=== PATIENT | male | born 1990 | race African-American/Black ===

== ENCOUNTER 2019-10-10 23:43 | Emergency (ER) | payer OTHER ==
[~2019-10-10] VITALS: Ht 182.9 cm; Wt 80.9 kg
[2019-10-11 00:23] LABS: BASO % 0.7 % (0.0-1.0); EOS # 0.1 10^3/uL (0.0-0.5); EOS % 1.2 % (0.0-3.0); HEMATOCRIT 40.2 % (42.0-52.0); HEMOGLOBIN 14.3 g/dl (13.5-17.5); LYMPH # 1.3 10^3/uL (1.5-5.0); LYMPH % 31.2 % (24.0-44.0); MEAN CORPUSCULAR HEMOGLOBIN 28.7 pg (27.0-33.0); MEAN CORPUSCULAR HGB CONC 35.6 g/dl (32.0-36.5); MEAN CORPUSCULAR VOLUME 80.6 fl (80.0-96.0); MONO # 0.6 10^3/uL (0.0-0.8); MONO % 12.9 % (0.0-5.0); NEUTROPHILS # 2.3 10^3/uL (1.5-8.5); NEUTROPHILS % 53.8 % (36.0-66.0); PLATELET COUNT, AUTOMATED 142 10^3/uL (150-450); RED BLOOD COUNT 4.99 10^6/uL (4.30-6.10); WHITE BLOOD COUNT 4.3 10^3/uL (4.0-10.0)
[2019-10-11] MEDS ORDERED: NS 1,000 ML IV ONE (00:30)
[2019-10-11] MEDS ORDERED: cefTRIAXone SOD 1 GM in D5W MINI-BAG PLUS 50 ML IV ONE (00:30)
[2019-10-11 00:41] LABS: ERYTHROCYTE SEDIMENTATION RATE 2 mm/hr (0-15)
[2019-10-11 00:42] LABS: BLOOD UREA NITROGEN 15 MG/DL (7-18); C REACTIVE PROTEIN QUANTITATIV 3.38 MG/DL (0.00-0.30); CALCIUM LEVEL 8.5 MG/DL (8.5-10.1); CARBON DIOXIDE LEVEL 27 MEQ/L (21-32); CHLORIDE LEVEL 106 MEQ/L (98-107); CREATININE FOR GFR 1.07 MG/DL (0.70-1.30); GLOMERULAR FILTRATION RATE > 60.0 (>60); GLUCOSE, FASTING 114 MG/DL (70-100); POTASSIUM SERUM 3.7 MEQ/L (3.5-5.1); SODIUM LEVEL 137 MEQ/L (136-145)
[2019-10-11] MEDS ORDERED: KEFL500C17 PO (00:53)
[2019-10-11 01:10] VITALS: BP 121/65
== END 2019-10-11 01:14 | disposition home or self-care (01) ==
LOC: M ED 23:43
DX: L03.116 Cellulitis of left lower limb (principal); L03.126 Acute lymphangitis of left lower limb; R50.9 Fever, unspecified
CPT/HCPCS: 80048; 83605; 85025; 85652; 86140; 87040; 96365; 99284; J0696

== ENCOUNTER 2021-01-22 20:33 | Emergency (ER) | payer OTHER ==
[~2021-01-22] VITALS: Ht 182.9 cm; Wt 87.3 kg
[~2021-01-22 20:33] MED LIST: KEFL500C17 PO
[2021-01-22] MEDS ORDERED: ONDANSETRON 4MG/2ML VIAL IV ONE (22:25)
[2021-01-22] MEDS ORDERED: MORPHINE 4 MG/ML 1ML VIAL/SYRINGE (J2270) IV ONE (22:25)
[2021-01-22 22:48] LABS: BASO % 0.3 % (0.0-1.0); EOS % 0.2 % (0.0-3.0); HEMATOCRIT 42.4 % (42.0-52.0); HEMOGLOBIN 14.7 g/dl (13.5-17.5); LYMPH # 0.9 10^3/uL (1.5-5.0); LYMPH % 9.3 % (24.0-44.0); MEAN CORPUSCULAR HEMOGLOBIN 27.9 pg (27.0-33.0); MEAN CORPUSCULAR HGB CONC 34.7 g/dl (32.0-36.5); MEAN CORPUSCULAR VOLUME 80.6 fl (80.0-96.0); MONO # 0.3 10^3/uL (0.0-0.8); MONO % 3.3 % (2.0-8.0); NEUTROPHILS # 8.1 10^3/uL (1.5-8.5); NEUTROPHILS % 86.6 % (36.0-66.0); PLATELET COUNT, AUTOMATED 187 10^3/uL (150-450); RED BLOOD COUNT 5.26 10^6/uL (4.30-6.10); WHITE BLOOD COUNT 9.4 10^3/uL (4.0-10.0)
[2021-01-22 23:11] LABS: BLOOD UREA NITROGEN 20 MG/DL (7-18); CALCIUM LEVEL 9.3 MG/DL (8.5-10.1); CARBON DIOXIDE LEVEL 30 MEQ/L (21-32); CHLORIDE LEVEL 106 MEQ/L (98-107); CREATININE FOR GFR 1.08 MG/DL (0.70-1.30); GLOMERULAR FILTRATION RATE > 60.0 (>60); GLUCOSE, FASTING 102 MG/DL (70-100); POTASSIUM SERUM 3.6 MEQ/L (3.5-5.1); SODIUM LEVEL 141 MEQ/L (136-145)
[2021-01-22] MEDS ORDERED: fentaNYL 100 MCG/2 ML INJECTION (J3010) IV ONE (23:15)
[2021-01-22 23:33] LABS: RSV AMPLIFICATION NEGATIVE (NEGATIVE)
--- NOTE | 2021-01-22 23:35 | REPVR ---
PROCEDURE INFORMATION: Exam: XR Left Ankle Exam date and time: 01/22/2021 10:13 PM Age: 30 years old Clinical indication: Pain; Ankle; Left; Additional info: Pain and swelling TECHNIQUE: Imaging protocol: XR Left ankle. Views: 3 or more views. COMPARISON: No relevant prior studies available. FINDINGS: Bones/joints: Acute transverse fracture through the base of the medial malleolus. The remainder of the distal tibia is displaced medially by nearly 2 cm with half of the articular surface of the talus uncovered by the tibia. In addition, there is a transverse fracture of the fibula 9 cm proximal to the distal end of the bone with full shaft width medial displacement of the dominant distal fragment and with 12 mm of shortening/overlap. No identifiable acute posterior malleolar fracture. Distal syndesmotic avulsion fracture with osseous fragments identified on the mortise view No osteochondral injury of the talar dome. Fifth metatarsal base is intact Soft tissues: Diffuse soft tissue swelling involving the lower leg and ankle. No soft tissue air, defect or foreign body. IMPRESSION: Acute bimalleolar fracture subluxation of the ankle with the distal tibia displaced 2 cm medial relative to the talar dome, with osseous avulsion fractures involving the distal syndesmosis Electronically signed by: Ho Lafleur On 01/22/2021 23:35:02 PM
--- NOTE | 2021-01-22 23:36 | REPVR ---
PROCEDURE INFORMATION: Exam: XR Left Tibia and Fibula Exam date and time: 01/22/2021 10:13 PM Age: 30 years old Clinical indication: Pain; Lower leg; Left; Additional info: Ankle pain TECHNIQUE: Imaging protocol: XR Left tibia and fibula. Views: 2 views. COMPARISON: No relevant prior studies available. FINDINGS: Bones/joints: Fractures involving the medial malleolus, distal fibula and distal syndesmosis attachments are present with medial subluxation of the distal tibial plafond relative to the talar dome as described on the ankle report. No fractures are seen more proximal. Soft tissues: Soft tissue swelling of the ankle. No proximal or mid leg soft tissue abnormality. IMPRESSION: No proximal or mid tibial or fibular deformity in a patient with a complex bimalleolar ankle fracture subluxation described on the ankle report Electronically signed by: Ho Lafleur On 01/22/2021 23:36:43 PM
[2021-01-22] MEDS ORDERED: PERC5TAB12 PO (23:46)
--- NOTE | 2021-01-23 00:16 | REPVR ---
PROCEDURE INFORMATION: Exam: CT Left Lower Extremity Without Contrast, Ankle Exam date and time: 01/22/2021 11:38 PM Age: 30 years old Clinical indication: Injury or trauma; Fall; Fracture, traumatic; Nondisplaced; Ankle; Left; Not specified; Additional info: Left ankle fracture/reduction TECHNIQUE: Imaging protocol: CT of the Left lower extremity without contrast was performed. Exam focused on the ankle. Radiation optimization: All CT scans at this facility use at least one of these dose optimization techniques: automated exposure control; mA and/or kV adjustment per patient size (includes targeted exams where dose is matched to clinical indication); or iterative reconstruction. COMPARISON: CR Ankle, complete LEFT 01/22/2021 11:31 PM FINDINGS: Bones/joints: Significant improvement in alignment in splint, with near anatomic realignment of the tibia relative to the talus, 1-2 mm residual medial displacement of the tibia relative to the talar dome and ankle mortise. 2 mm distraction between the major medial malleolar base fracture and the distal tibia. Acute comminuted fracture involving the lateral aspect of the distal tibial plafond with dominant fracture fragment measuring 2.3 x 0.8 cm distracted laterally by 3-4 mm. This is at the tibial attachment of the syndesmosis. Residual mild 7 mm medial displacement of the dominant distal fracture of the fibula to to the proximal fracture. Distal fibular tip minimal avulsion, likely related to an anterior talofibular ligament tear. Soft tissues: Closed reduction and splinting with external splint device present. Soft tissue edema diffusely over the ankle, worst medially. No soft tissue air or defect to suggest an open injury component.. IMPRESSION: Significant improvement in alignment of the complex ankle fracture involving the medial malleolus, distal fibula and tibial attachment of the syndesmosis Electronically signed by: Ho Lafleur On 01/23/2021 00:16:24 AM
[2021-01-23 00:24] VITALS: BP 131/66
--- NOTE | 2021-01-23 08:10 | REP ---
INDICATION: post reduction COMPARISON: 01/22/2021 TECHNIQUE: AP, lateral, bilateral oblique views. FINDINGS: Distal fibular and medial malleolar fractures are identified. Further evaluation is limited by overlying cast material. IMPRESSION: Continued evidence for fractures of the distal fibular diaphysis and medial malleolus. <Electronically signed by Erick Gomez > 01/23/21 0873
--- NOTE | 2021-01-23 11:51 | CR ---
CONSULTATION DATE: 01/22/2021 CHIEF COMPLAINT: Left ankle fracture. HISTORY OF PRESENT ILLNESS: This is a 30-year-old man who is in the . He was playing flag football this evening at 6:30 p.m. He came down awkwardly, felt a snap in his ankle. He presented to [facility]. He was found to have a left ankle fracture/subluxation. I was consulted by the Emergency Department by Dr. Shaikh. No prior pain or problems with the ankle. PAST MEDICAL HISTORY: Nil. MEDICATIONS: None. ALLERGIES: No known drug allergies. PAST SURGICAL HISTORY: Appendectomy. SOCIAL HISTORY: He is in the , [facility]. He is from [place]. He is a nonsmoker and drinks alcohol occasionally. PHYSICAL EXAMINATION: He is a well-appearing 30-year-old man. He has an obvious deformity of the left lower extremity at the ankle. Calf is soft, no pain at the knee or the contralateral lower extremity. He is able to wiggle his toes. Normal sensation to superficial and deep peroneal nerves as well as saphenous, and sural tibia. Sharp dorsalis pedis pulse. Foot is warm and well-perfused. RADIOGRAPHS: Radiographs reveal left ankle fracture, subluxation of the talus, high fibular fracture as well as transverse medial malleolus type fracture. ASSESSMENT AND PLAN: This is a 30-year-old man with an ankle fracture/subluxation, Ortiz C in a "Maisonneuve" type fracture of the left ankle indicating syndesmosis instability. Recommend closed reduction and splinting, post reduction CT scan for surgical planning and eventually open reduction internal fixation. I discussed the risks of closed reduction splinting and successfully performed this with reduction of the talus underneath the tibia. I recommend rest, elevation, nonweightbearing with crutches, follow-up with myself later in the week, surgical planning or with the as this is indicated for surgery. I gave him my number as well as discussed discharge planning with the Emergency Department physicians directly. He may be discharged home after his CT scan. PROCEDURE NOTE: I discussed pros, cons, risks and benefits of going ahead with closed reduction and splinting of the left ankle. The risks include but are not limited to pain, stiffness, weakness, damage to other structures, failure to achieve and maintain a closed reduction, cast irritation, cast burn, compartment syndrome and other risks. He understands and wished to proceed. I had the ED provider, QMDelia order 50 mcg of Fentanyl which we gave the patient. I hung the patient's legs down off the bed. I placed a three sided below knee well-padded plaster of Keely splint over wrapped 6 inch Tex bandages, plantar flexed the foot. I applied medially directed force over the lateral aspect of the distal fibula and contralateral molding proximal at the distal medial end of the tibia. I let the cast fully set using this reduction technique. I took final AP, lateral and oblique x-rays to confirm proper reduction. Patient was neurovascularly intact afterwards with good capillary refill with normal sensation, the foot was warm and well-perfused. Patient understands and had no further questions, he may eat a diet as tolerated. DEBBIE
== END 2021-01-23 00:27 | disposition home or self-care (01) ==
LOC: M ED 20:33
DX: S82.842A Displaced bimalleolar fracture of left lower leg, initial encounter for closed fracture (principal); S82.422A Displaced transverse fracture of shaft of left fibula, initial encounter for closed fracture; X50.0XXA Overexertion from strenuous movement or load, initial encounter; Y92.009 Unspecified place in unspecified non-institutional (private) residence as the place of occurrence of the external cause; Y93.62 Activity, american flag or touch football; Y99.9 Unspecified external cause status
CPT/HCPCS: 27810; 73590; 73610; 73700; 80048; 85025; 87631; 96374; 96375; 99284; J2270; J2405; J3010

== ENCOUNTER 2021-01-24 13:01 | Day surgery (SDC) | payer OTHER ==
[~2021-01-24] VITALS: Ht 182.9 cm; Wt 87.5 kg
[~2021-01-24 13:01] MED LIST changes: +LR 1,000 ML IV ONE; +MIDAZOLAM INJ 2MG/2ML VIAL (J2250 PER 1MG) IV PRN; +PERC5TAB12 PO; +fentaNYL 100 MCG/2 ML INJECTION (J3010) IV PRN
[2021-01-24] MEDS ORDERED: ceFAZolin SOD 1 GM in D5W MINI-BAG PLUS 50 ML IV SCH (14:05)
[2021-01-24] MEDS ORDERED: LIDOCAINE 1% MDV 20ML VIAL XX ONE (15:10)
[2021-01-24] MEDS ORDERED: dexameTHASONE 10MG/1ML VIAL PRES.FREE (J1100 PER 1MG) XX ONE (15:10)
[2021-01-24] MEDS ORDERED: ROPIvacaine 0.5% 30ML INJECTION (J2795 PER 1MG) XX ONE (15:10)
[2021-01-24] MEDS: ceFAZolin SOD 1 GM in D5W MINI-BAG PLUS 50 ML IV SCH (16:11)
[2021-01-24] MEDS ORDERED: ROCURONIUM BROMIDE 50 MG/5 ML VIAL As Ordered ONE (16:37)
[2021-01-24] MEDS ORDERED: LIDOCAINE 2% 100MG/5ML SDV (FOR ANES.) As Ordered ONE (16:37)
[2021-01-24] MEDS ORDERED: propofoL 200 MG/20 ML VIAL As Ordered ONE (16:37)
[2021-01-24] MEDS ORDERED: fentaNYL 250 MCG/5 ML INJECTION (J3010) As Ordered ONE (16:37)
[2021-01-24] MEDS ORDERED: MIDAZOLAM INJ 2MG/2ML VIAL (J2250 PER 1MG) As Ordered ONE (16:38)
[2021-01-24] MEDS ORDERED: TRANEXAMIC ACID 100 MG/ML 10ML VIAL As Ordered ONE ×2 (16:42→19:17)
[2021-01-24] MEDS ORDERED: fentaNYL 100 MCG/2 ML INJECTION (J3010) As Ordered ONE (18:31)
[2021-01-24] MEDS ORDERED: KETOROLAC 60MG 2ML VIAL As Ordered ONE (18:32)
[2021-01-24] MEDS ORDERED: ONDANSETRON 4MG/2ML VIAL As Ordered ONE (18:32)
[2021-01-24] MEDS ORDERED: dexameTHASONE 4 MG/ML 1ML VIAL (J1100 PER 1MG) As Ordered ONE (18:32)
[2021-01-24] MEDS ORDERED: ACETAMINOPHEN 1000MG 100ML IV BTL (OFIRMEV) (J0131 PER 10MG) As Ordered ONE (18:33)
[2021-01-24] MEDS ORDERED: KETAMINE HCL 200 MG/20 ML VIAL As Ordered ONE (18:53)
[2021-01-24] MEDS ORDERED: VANCOMYCIN 500MG/10ML VIAL As Ordered ONE (19:15)
[2021-01-24] MEDS ORDERED: SUGAMMADEX SODIUM 500 MG/5 ML VIAL (BRIDION) As Ordered ONE (19:19)
[2021-01-24] MEDS ORDERED: ESMOLOL INJ 100MG/10ML VIAL As Ordered ONE (20:10)
[2021-01-24 22:43] VITALS: BP 140/75
[2021-01-24] MEDS ORDERED: fentaNYL 100 MCG/2 ML INJECTION (J3010) IV PRN (23:10)
[2021-01-24] MEDS ORDERED: HYDROMORPHONE HCL 0.5 MG/ 0.5 ML SYRINGE (J1170 PER 1) IV PRN (23:10)
[2021-01-24] MEDS ORDERED: oxyCODONE 5MG TAB PO PRN (23:10)
[2021-01-24] MEDS ORDERED: LR 1,000 ML IV SCH (23:10)
[2021-01-24] MEDS ORDERED: ONDANSETRON 4MG/2ML VIAL IV PRN (23:10)
--- NOTE | 2021-01-25 07:17 | RO ---
OPERATIVE NOTE DATE OF OPERATION: 01/24/2021 TIME: 6 p.m. PREOPERATIVE DIAGNOSIS: Left ankle bimalleolar fracture with a distal anterolateral tibial fracture and syndesmotic disruption. POSTOPERATIVE DIAGNOSIS: Left ankle bimalleolar fracture with a distal anterolateral tibial fracture and syndesmotic disruption. NAME OF OPERATION: Left ankle open reduction and internal fixation with syndesmotic fixation. SURGEON: Edmond Mir MD COMPLIANCE REVIEW OFFICER: None. SUPERVISING ATTENDING: Edmond Mir MD FINDINGS: The patient had a bimalleolar ankle fracture with syndesmotic disruption as well as a distal anterolateral tibial shaft fracture. INDICATIONS: This was a 30-year-old male who sustained a left bimalleolar ankle fracture dislocation with a syndesmotic disruption and a distal tibial fracture after landing on his left ankle during a football game while playing with his unit members. He presented to the [facility] for further evaluation and treatment on Friday, the January, and then presented to the [facility] orthopedic clinic for further evaluation and treatment where he was indicated for operative intervention. ANESTHESIA: GETA. TOURNIQUET TIME: 120 minutes. ESTIMATED BLOOD LOSS: 3 mL. IV FLUIDS: Please see anesthesia report. IV ANTIBIOTICS: Please see anesthesia report. IMPLANTS: Synthes and Arthrex. CULTURES: None. SPECIMENS: None. DESCRIPTION OF PROCEDURE: The patient was met in the preoperative holding area where the patient's operative extremity was signed, the patient's consent was confirmed to be correct, and the patient's identity was confirmed to be correct. He was then transported to the operating theater and placed in supine position with a radiolucent flat foot in extension. A safety strap secured the patient to the bed. All bony prominences were well padded. The contralateral lower extremity had an SCD placed. A timeout was called which confirmed the correct patient, correct operative extremity and correct consent. All staff were in agreement. We began the case by obtaining fluoroscopic imaging on the patient's bimalleolar ankle fracture to include the fibular shaft and the medial malleolus with a separate anterolateral distal tibial the Chaput fracture. After obtaining AP and lateral views, I then made a longitudinal incision in line with the fibular shaft extending to the distal fibula. I identified the distal anterolateral tibial portion of Chaput fragment and this was provisionally reduced using thin K-wires. I then used meticulous hemostasis, made my way towards the shaft of the fibular fracture. I ensured to protect the superficial peroneal nerve throughout the remainder of the case. Using a lobster clamp, I reduced the fracture. We placed a seven-hole plate in position. This was secured with thin wires. I secured it distally using five locking 2.7 mm screws and secured proximally using three cortical screws. This would be a bridging construct as the fracture was transverse with minimal comminution at the fracture site. Once the fibular plate was in position, I then turned my attention to the Chaput fragment. This was secured using two thin K-wires and confirmed with provisional reduction using AP and lateral fluoroscopy. I then placed one 4.0 mm partially threaded cannulated screw in position which was 50 mm in length in order to secure the Chaput or anterolateral distal tibial component into position. Once this was completed, we then turned our attention to the medial malleolus. I made a longitudinal incision in line with the shaft of the tibia overlying the medial malleolus using meticulous hemostasis. The fracture fragment was then cleaned using a scalpel, dental pick and hemostat. Once this was cleaned, I drilled a ship's pilot hole proximal to the fracture and used a [id number] bone-reducing clamp in order to reduce the fracture. I then placed two thin wires across the medial malleolar fracture site and confirmed with fluoroscopy and we were satisfied with positioning. I then placed two 4.0 mm partially threaded cannulated screws in position in order to secure this fragment in position using two screws to ensure that it would have rotational stability. I confirmed with fluoroscopy that I was satisfied with position and removed the K-wires. I then turned my attention to the lateral incision once more. I drilled a transosseous tunnel in order to place our suture button into position. This would be our syndesmotic fixation. I passed the Arthrex TightRope suspensory fixation unicortical button across the medial cortex and deployed the suspensory fixation. This was then tightened to secure our syndesmotic disruption. I then cut the loose ends and stressed the ankle with a mortise view ensure that the syndesmotic secure, it was. We then took final fluoroscopic imaging to include a mortise AP and lateral of the ankle. We were satisfied with our fixation at this point in time. We copiously irrigated the surgical site. I placed 1 mL of DBX at the fibular shaft fracture site in order to aid in healing. I then placed 1 gm of vancomycin powder over the fibular plate. At this point in time, I then closed the dermal layer of the medial and lateral incisions using 2-0 Vicryl. I closed the skin using an uninterrupted running mattress suture. I then placed Xeroform over the surgical incision followed by 4x4 gauze and the patient's left leg was placed in a well padded L and U splint. The patient was then extubated without complication and transported to the postanesthesia care unit. The patient will follow up in the [place] orthopedic clinic in two weeks for a postoperative wound check. He was given his pain medication, his preoperative appointment. He will follow the ankle open reduction and internal fixation rehabilitative protocol. The patient will be educated of the aforementioned findings at his next visit or in the PACU.
--- NOTE | 2021-01-25 08:42 | REP ---
INDICATION: LEFT ANKLE FRACTURE. COMPARISON: Radiographs 01/22/2021. TECHNIQUE: Multiple C-arm views left ankle. FINDINGS: Distal tibial and fibular fractures are again noted. There is placement of a metallic side plate along the distal fibula fixed by multiple metallic screws. Screws are also seen in the medial malleolus. The ankle mortise is anatomic. IMPRESSION: 167 seconds fluoroscopy time utilized. <Electronically signed by Raul Dhillon > 01/25/21 [id number]
== END 2021-01-24 23:00 | disposition home or self-care (01) ==
LOC: M SDC 13:01
PROVIDERS: ATTEND Orthopaedic Surgery
DX: S82.842A Displaced bimalleolar fracture of left lower leg, initial encounter for closed fracture (principal); Y92.321 Football field as the place of occurrence of the external cause; Y93.61 Activity, american tackle football; Y99.9 Unspecified external cause status
CPT/HCPCS: 27814; 27829; 64445; 76000; C1713; C1762; J0131; J0690; J1100; J1885; J2250; J2405; J2795; J3010; J3370